=== PATIENT | male | born 1965 | race African-American/Black ===

== ENCOUNTER → 2016-07-14 | Outpatient (CLI) | payer OTHER ==
--- NOTE | 2016-07-15 05:54 | ECHO ---
DATE OF PROCEDURE: 07/14/2016 REFERRING PHYSICIAN: Dr. Jonah Rivera. INDICATION: Preprocedural cardiac examination. HEIGHT: 180 cm. WEIGHT: 97.5 kg. MEASUREMENTS: Left ventricle diastole: 4.9 cm Ventricular septum: 1.12 cm Posterior wall: 1.11 cm Left atrium: 3.8 cm Aortic root: 3.5 cm LVOT: 2.2 cm DOPPLER MEASUREMENTS: Aortic valve velocity: 134 cm/s LVOT velocity: 72.9 cm/s LVOT VTI: 15.2 cm Very mild mitral regurgitation. Mitral E velocity: 54.8 cm/s Mitral A velocity: 78.5 cm/s Very mild tricuspid regurgitation. Very mild pulmonic regurgitation. Pulmonary artery systolic pressure 36 mmHg by pulmonary acceleration time method. MITRAL ANNULAR TISSUE DOPPLER: E-prime septal: 4.7 cm/s E-prime lateral: 8.9 cm/s DESCRIPTION: Rhythm was sinus. This was a moderately technically difficult echocardiogram. No pericardial effusion. This is a 2D, M-mode, color flow Doppler and pulsed wave Doppler examination and included mitral annular tissue Doppler. CONCLUSIONS: 1. Normal left ventricle internal dimensions and wall thickness. Normal LV wall motion and wall thickening. Normal LV systolic function. LVEF 60% by visual estimate. 2. Grade 1 LV diastolic dysfunction. 3. Suggestive of mild elevation of pulmonary artery increased systolic pressure. Central venous pressure estimated to be 0-5 mmHg.
== END | disposition home or self-care (01) ==
LOC: M CARPUL 12:55
PROVIDERS: ATTEND Internal Medicine Infectious Disease
DX: Z01.810 Encounter for preprocedural cardiovascular examination (principal); I51.9 Heart disease, unspecified; I87.8 Other specified disorders of veins

== ENCOUNTER → 2016-10-05 | Outpatient (REF) | payer OTHER ==
[2016-10-05 13:29] LABS: ALBUMIN 3.8 GM/DL (3.2-5.2); ALBUMIN/GLOBULIN RATIO 1.03 (1.00-1.93); ALKALINE PHOSPHATASE 91 U/L (45-117); ALT/SGPT 70 U/L (12-78); ANION GAP 9 MEQ/L (8-16); AST/SGOT 32 U/L (15-37); BILIRUBIN,TOTAL 0.2 MG/DL (0.2-1.0); BLOOD UREA NITROGEN 24 MG/DL (7-18); CALCIUM LEVEL 9.1 MG/DL (8.5-10.1); CARBON DIOXIDE LEVEL 24 MEQ/L (21-32); CHLORIDE LEVEL 108 MEQ/L (98-107); CHOLESTEROL LEVEL 186 MG/DL (<200); CREATININE FOR GFR 1.15 MG/DL (0.70-1.30); GLOMERULAR FILTRATION RATE > 60.0 (>56); GLUCOSE, FASTING 96 MG/DL (70-105); POTASSIUM SERUM 4.4 MEQ/L (3.5-5.1); SODIUM LEVEL 141 MEQ/L (136-145); TOTAL PROTEIN 7.5 GM/DL (6.4-8.2); TRIGLYCERIDES LEVEL 114 MG/DL (<150)
[2016-10-08 00:08] LABS: %CD3+CD4+CD8+ 1.6 % (Not Estab.); %CD3+CD4+CD8- 32.5 % (Not Estab.); %CD3+CD4-CD8+ 28.1 % (Not Estab.); %CD3+CD4-CD8- 0.5 % (Not Estab.); ABS CD3+CD4+CD8+ 37 /uL (Not Estab.); ABS CD3+CD4+CD8- 748 /uL (Not Estab.); ABS CD3+CD4-CD8+ 646 /uL (Not Estab.); ABS CD3+CD4-CD8- 12 /uL (Not Estab.); CD4/CD8 NYSDOH RATIO 1.16 (Not Estab.); Eosinophils 3 % (.); HCT 41.9 % (37.5-51.0); HGB 13.9 g/dL (12.6-17.7); Monocytes 10 % (.); Neutrophils 47 % (.); WBC 5.9 x10E3/uL (3.4-10.8)
== END ==
LOC: M SFHCPLAZ 08:52
PROVIDERS: ATTEND Internal Medicine Infectious Disease
DX: B20 Human immunodeficiency virus [HIV] disease (principal); Z11.3 Encounter for screening for infections with a predominantly sexual mode of transmission; Z13.220 Encounter for screening for lipoid disorders; Z12.5 Encounter for screening for malignant neoplasm of prostate

== ENCOUNTER → 2016-10-14 | Outpatient (CLI) | payer OTHER ==
--- NOTE | 2016-10-20 12:31 | SLEEPHOME ---
DATE OF PROCEDURE: 10/14/2016 INTERPRETATION: Diagnostic home sleep testing was performed due to concern for the obstructive sleep apnea syndrome. For testing, a NOX-T3 respiratory monitoring device was used. Continuous record was made of pulse, oxygen saturation, air flow, chest and abdominal strain, and body position. 9 hours and 59 minutes of data were reviewed. Of these, 7 hours and 42 minutes were marked as time in bed. During the interval marked time in bed, there were 141 respiratory events identified of 10 seconds in duration or greater for a respiratory event index of 18.3. The events were primarily obstructive. Baseline pulse rate was 88 beats per minute. Pulse rate ranged 56 to 110. Baseline saturation was 93%. Lowest oxygen saturation 81%. Testing was performed in both the supine and nonsupine positions. IMPRESSION: Abnormal home sleep testing with repetitive respiratory events and oxygen desaturations to 81% with a respiratory event index of 18.3 is consistent with the obstructive sleep apnea syndrome. RECOMMENDATION: The patient should be referred for formal sleep evaluation and in laboratory pressure titration in light of the significant oxygen desaturations.
== END ==
LOC: M SLEEP HO 13:13
PROVIDERS: ATTEND Internal Medicine Infectious Disease
DX: R06.83 Snoring (principal); G47.9 Sleep disorder, unspecified

== ENCOUNTER → 2017-03-18 | Outpatient (REF) | payer OTHER ==
[2017-03-18 14:37] LABS: ALBUMIN/GLOBULIN RATIO 1.05 (1.00-1.93); ALKALINE PHOSPHATASE 103 U/L (45-117); ALT/SGPT 37 U/L (12-78); ANION GAP 11 MEQ/L (8-16); AST/SGOT 20 U/L (15-37); BILIRUBIN,TOTAL 0.6 MG/DL (0.2-1.0); BLOOD UREA NITROGEN 13 MG/DL (7-18); CALCIUM LEVEL 9.5 MG/DL (8.5-10.1); CARBON DIOXIDE LEVEL 25 MEQ/L (21-32); CHLORIDE LEVEL 108 MEQ/L (98-107); CREATININE FOR GFR 1.05 MG/DL (0.70-1.30); GLOMERULAR FILTRATION RATE > 60.0 (>56); GLUCOSE, FASTING 90 MG/DL (70-105); POTASSIUM SERUM 4.4 MEQ/L (3.5-5.1); SODIUM LEVEL 144 MEQ/L (136-145); TOTAL PROTEIN 7.8 GM/DL (6.4-8.2)
[2017-03-20 00:07] LABS: %CD3+CD4+CD8+ 1.4 % (Not Estab.); %CD3+CD4+CD8- 34.8 % (Not Estab.); %CD3+CD4-CD8+ 27.4 % (Not Estab.); %CD3+CD4-CD8- 0.7 % (Not Estab.); ABS CD3+CD4+CD8+ 27 /uL (Not Estab.); ABS CD3+CD4+CD8- 661 /uL (Not Estab.); ABS CD3+CD4-CD8+ 521 /uL (Not Estab.); ABS CD3+CD4-CD8- 13 /uL (Not Estab.); CD4/CD8 NYSDOH RATIO 1.27 (Not Estab.); Eosinophils 2 % (.); HCT 44.5 % (37.5-51.0); HGB 15.3 g/dL (12.6-17.7); Monocytes 9 % (.); Neutrophils 53 % (.); WBC 5.4 x10E3/uL (3.4-10.8)
== END ==
LOC: M SFHCPLAZ 12:00
PROVIDERS: ATTEND Internal Medicine Infectious Disease
DX: B20 Human immunodeficiency virus [HIV] disease (principal)

== ENCOUNTER → 2017-08-02 | Outpatient (CLI) | payer MEDICARE, MEDICAID | LOC: M RAD 16:39 | DX: M25.572 Pain in left ankle and joints of left foot (principal) | CPT/HCPCS: 73700 ==

== ENCOUNTER → 2017-11-08 | Outpatient (REF) | payer MEDICARE, MEDICAID ==
[2017-11-08 12:46] LABS: ALBUMIN 3.7 GM/DL (3.2-5.2); ALBUMIN/GLOBULIN RATIO 0.95 (1.00-1.93); ALKALINE PHOSPHATASE 112 U/L (45-117); ALT/SGPT 27 U/L (12-78); ANION GAP 6 MEQ/L (8-16); AST/SGOT 24 U/L (7-37); BILIRUBIN,TOTAL 0.3 MG/DL (0.2-1.0); BLOOD UREA NITROGEN 18 MG/DL (7-18); CALCIUM LEVEL 8.9 MG/DL (8.5-10.1); CARBON DIOXIDE LEVEL 27 MEQ/L (21-32); CHLORIDE LEVEL 110 MEQ/L (98-107); CHOLESTEROL LEVEL 175 MG/DL (<200); CHOLESTEROL RISK RATIO 3.804 (<5); CREATININE FOR GFR 0.97 MG/DL (0.70-1.30); GLOMERULAR FILTRATION RATE > 60.0 (>56); GLUCOSE, FASTING 92 MG/DL (70-100); HDL CHOLESTEROL 46 MG/DL (>40); LDL CHOLESTEROL 110.6 MG/DL (<100); NON-HDL-C 129 MG/DL; POTASSIUM SERUM 4.5 MEQ/L (3.5-5.1); PSA SCREENING 2.12 NG/ML (< 4.0); SODIUM LEVEL 143 MEQ/L (136-145); TOTAL PROTEIN 7.6 GM/DL (6.4-8.2); TRIGLYCERIDES LEVEL 92 MG/DL (<150)
[2017-11-08 12:53] LABS: APPEARANCE, URINE HAZY (CLEAR); BACTERIA, URINE AUTO 1+ (NEGATIVE); BILIRUBIN, URINE AUTO NEGATIVE (NEGATIVE); BLOOD, URINE BLOOD NEGATIVE (NEGATIVE); COLOR, URINE YELLOW (YELLOW); GLUCOSE, URINE (UA) AUTO NEGATIVE (NEGATIVE); KETONE, URINE AUTO NEGATIVE (NEGATIVE); LEUKOCYTE ESTERASE, URINE AUTO NEGATIVE (NEGATIVE); MUCUS, URINE SMALL (NEGATIVE); NITRITE, URINE AUTO NEGATIVE (NEGATIVE); PROTEIN, URINE AUTO NEGATIVE (NEGATIVE); RBC, URINE AUTO 3 /HPF (0-3); SPECIFIC GRAVITY URINE AUTO 1.025 (1.002-1.035); SQUAMOUS EPITHELIAL CELL UR AU 0 /HPF (0-6); WBC, URINE AUTO 1 /HPF (0-3)
[2017-11-08 14:06] LABS: CHLAMYDIA DNA AMPLIFICATION NEGATIVE (NEGATIVE); GC DNA AMPLIFICATION NEGATIVE (NEGATIVE)
[2017-11-09 14:19] LABS: % CD8 Pos Lymph 29.8 % (12.0-35.5); %CD4 Pos Lymphs 37.6 % (30.8-58.5); ABS Eosinophils 0.1 x10E3/uL (0.0-0.4); ABS Monocytes 0.6 x10E3/uL (0.1-0.9); ABS Neutophils 4.5 x10E3/uL (1.4-7.0); Abs CD4 Helper 752 /uL (359-1519); Abs CD8 Suppres 596 /uL (109-897); CD4/CD8 Ratio 1.26 (0.92-3.72); Eosinophils 2 % (Not Estab.); HCT 42.6 % (37.5-51.0); HGB 13.6 g/dL (13.0-17.7); Immature Grans 0 % (Not Estab.); Lymphocytes 27 % (Not Estab.); MCH 30.6 pg (26.6-33.0); MCHC 31.9 g/dL (31.5-35.7); MCV 96 fL (79-97); Monocytes 8 % (Not Estab.); Neutrophils 63 % (Not Estab.); Platelets 355 x10E3/uL (150-379); RBC 4.44 x10E6/uL (4.14-5.80); RDW 15.4 % (12.3-15.4); WBC 7.2 x10E3/uL (3.4-10.8)
[2017-11-10 14:16] LABS: HIV-1 RNA PCR QUANT 2 LC550285 <20 copies/mL (.)
== END ==
LOC: M SFHCPLAZ 08:54
DX: B20 Human immunodeficiency virus [HIV] disease (principal); Z13.220 Encounter for screening for lipoid disorders; Z12.5 Encounter for screening for malignant neoplasm of prostate; R76.11 Nonspecific reaction to tuberculin skin test without active tuberculosis; M21.542 Acquired clubfoot, left foot; J30.9 Allergic rhinitis, unspecified; Z72.0 Tobacco use; Z23 Encounter for immunization; G47.33 Obstructive sleep apnea (adult) (pediatric); Z79.899 Other long term (current) drug therapy
CPT/HCPCS: 80053

== ENCOUNTER → 2018-06-14 | Outpatient (REF) | payer MEDICARE, MEDICAID ==
[2018-06-14 12:29] LABS: ALBUMIN 3.8 GM/DL (3.2-5.2); ALT/SGPT 25 U/L (12-78); BILIRUBIN,TOTAL 0.3 MG/DL (0.2-1.0); BLOOD UREA NITROGEN 16 MG/DL (7-18); CALCIUM LEVEL 8.7 MG/DL (8.5-10.1); CARBON DIOXIDE LEVEL 25 MEQ/L (21-32); CHLORIDE LEVEL 112 MEQ/L (98-107); CREATININE FOR GFR 0.91 MG/DL (0.70-1.30); GLOMERULAR FILTRATION RATE > 60.0 (>56); GLUCOSE, FASTING 94 MG/DL (70-100); POTASSIUM SERUM 4.2 MEQ/L (3.5-5.1); SODIUM LEVEL 143 MEQ/L (136-145); TOTAL PROTEIN 7.3 GM/DL (6.4-8.2)
[2018-06-16 14:24] LABS: % CD8 Pos Lymph 30.1 % (12.0-35.5); %CD4 Pos Lymphs 39.2 % (30.8-58.5); ABS Eosinophils 0.1 x10E3/uL (0.0-0.4); ABS Lymphs 1.9 x10E3/uL (0.7-3.1); ABS Monocytes 0.5 x10E3/uL (0.1-0.9); ABS Neutophils 3.7 x10E3/uL (1.4-7.0); Abs CD4 Helper 745 /uL (359-1519); Abs CD8 Suppres 572 /uL (109-897); Eosinophils 2 % (Not Estab.); HCT 41.9 % (37.5-51.0); HGB 13.8 g/dL (13.0-17.7); HIV-1 RNA PCR QUANT 2 LC550285 <20 copies/mL (.); Immature Grans 0 % (Not Estab.); Lymphocytes 30 % (Not Estab.); MCH 31.7 pg (26.6-33.0); MCHC 32.9 g/dL (31.5-35.7); MCV 96 fL (79-97); Monocytes 8 % (Not Estab.); Neutrophils 59 % (Not Estab.); Platelets 356 x10E3/uL (150-379); RBC 4.35 x10E6/uL (4.14-5.80); RDW 15.7 % (12.3-15.4); WBC 6.3 x10E3/uL (3.4-10.8)
== END ==
LOC: M SFHCPLAZ 09:46
PROVIDERS: ATTEND Internal Medicine Infectious Disease
DX: B20 Human immunodeficiency virus [HIV] disease (principal)
CPT/HCPCS: 36415; 80053; 86360; 87536; 90682; G0008; G0463

== ENCOUNTER → 2018-08-29 | Outpatient (REF) | payer MEDICARE, MEDICAID, OTHER | LOC: M SFHCPLAZ 12:35 | PROVIDERS: ATTEND Internal Medicine Infectious Disease | DX: L02.01 Cutaneous abscess of face (principal) | CPT/HCPCS: 87070; 87077; 87186; 87205; G0463 ==

== ENCOUNTER → 2018-09-23 | Outpatient (CLI) | payer MEDICARE, OTHER ==
--- NOTE | 2018-09-23 15:05 | REP ---
Left tib-fib series: Four views. History: Status post ankle fusion. No comparison imaging. Findings: An intramedullary tin is seen in the distal tibia which is seen coursing through the ankle joint and terminating and anchored in the mid calcaneus. There are anchoring pins across the talus as well. There are two metallic ruy across the first tarsometatarsal articulation. There is a nonunited radiolucent cleft in the distal fibular diametaphyseal region. Impression: Status post ankle and hind foot arthrodesis findings as above. Electronically Signed by Lit Cordova MD 09/23/2018 04:19 P
== END ==
LOC: M RAD 10:16
PROVIDERS: ATTEND Podiatrist Foot & Ankle Surgery
DX: Z98.1 Arthrodesis status (principal)

== ENCOUNTER → 2018-12-15 | Outpatient (REF) | payer OTHER, MEDICAID ==
[2018-12-15 16:21] LABS: APPEARANCE, URINE CLEAR (CLEAR); BACTERIA, URINE AUTO NEGATIVE (NEGATIVE); BILIRUBIN, URINE AUTO NEGATIVE (NEGATIVE); BLOOD, URINE BLOOD NEGATIVE (NEGATIVE); COLOR, URINE YELLOW (YELLOW); GLUCOSE, URINE (UA) AUTO NEGATIVE (NEGATIVE); KETONE, URINE AUTO TRACE mg/dL (NEGATIVE); LEUKOCYTE ESTERASE, URINE AUTO NEGATIVE (NEGATIVE); MUCUS, URINE SMALL (NEGATIVE); NITRITE, URINE AUTO NEGATIVE (NEGATIVE); PROTEIN, URINE AUTO NEGATIVE (NEGATIVE); RBC, URINE AUTO 0 /HPF (0-3); SPECIFIC GRAVITY URINE AUTO 1.026 (1.002-1.035); SQUAMOUS EPITHELIAL CELL UR AU 0 /HPF (0-6); WBC, URINE AUTO 0 /HPF (0-3)
[2018-12-15 16:28] LABS: ALBUMIN 4.2 GM/DL (3.2-5.2); ALT/SGPT 29 U/L (12-78); BILIRUBIN,TOTAL 0.5 MG/DL (0.2-1.0); BLOOD UREA NITROGEN 15 MG/DL (7-18); CALCIUM LEVEL 9.4 MG/DL (8.5-10.1); CARBON DIOXIDE LEVEL 24 MEQ/L (21-32); CHLORIDE LEVEL 106 MEQ/L (98-107); CHOLESTEROL LEVEL 202 MG/DL (<200); CREATININE FOR GFR 1.11 MG/DL (0.70-1.30); GLOMERULAR FILTRATION RATE > 60.0 (>56); GLUCOSE, FASTING 99 MG/DL (70-100); HDL CHOLESTEROL 44 MG/DL (>40); LDL CHOLESTEROL 139 MG/DL (<100); NON-HDL-C 158 MG/DL; POTASSIUM SERUM 4.5 MEQ/L (3.5-5.1); SODIUM LEVEL 140 MEQ/L (136-145); TOTAL PROTEIN 8.6 GM/DL (6.4-8.2); TRIGLYCERIDES LEVEL 94 MG/DL (<150)
[2018-12-15 18:52] LABS: CHLAMYDIA DNA AMPLIFICATION NEGATIVE (NEGATIVE); GC DNA AMPLIFICATION NEGATIVE (NEGATIVE)
[2018-12-20 00:06] LABS: % CD8 Pos Lymph 29.7 % (12.0-35.5); %CD4 Pos Lymphs 40.6 % (30.8-58.5); ABS Eosinophils 0.1 x10E3/uL (0.0-0.4); ABS Lymphs 2.5 x10E3/uL (0.7-3.1); ABS Monocytes 0.6 x10E3/uL (0.1-0.9); ABS Neutophils 4.1 x10E3/uL (1.4-7.0); Abs CD4 Helper 1015 /uL (359-1519); Abs CD8 Suppres 743 /uL (109-897); CD4/CD8 Ratio 1.37 (0.92-3.72); Eosinophils 2 % (Not Estab.); HCT 48.7 % (37.5-51.0); HGB 15.9 g/dL (13.0-17.7); HIV-1 RNA PCR QUANT 2 LC550285 <20 copies/mL (.); Immature Grans 0 % (Not Estab.); Lymphocytes 34 % (Not Estab.); MCH 32.6 pg (26.6-33.0); MCHC 32.6 g/dL (31.5-35.7); MCV 100 fL (79-97); Monocytes 8 % (Not Estab.); Neutrophils 56 % (Not Estab.); Platelets 415 x10E3/uL (150-450); RBC 4.87 x10E6/uL (4.14-5.80); RDW 15.2 % (12.3-15.4); WBC 7.3 x10E3/uL (3.4-10.8)
== END ==
LOC: M SFHCPLAZ 12:48
PROVIDERS: ATTEND Internal Medicine Infectious Disease
DX: B20 Human immunodeficiency virus [HIV] disease (principal); Z11.3 Encounter for screening for infections with a predominantly sexual mode of transmission

== ENCOUNTER → 2018-12-26 | Outpatient (CLI) | payer MEDICARE, MEDICAID ==
[~2018-12-26] MED LIST: BENA25CA4 PO; CHAN1PAK11; GENV1TAB; ISOVUE-370 76% 100ML VIAL (Q9967) As Ordered ONE; NICO4GUM41; PRED20TA PO; PRIL20TA2 PO
--- NOTE | 2018-12-27 10:02 | REP ---
Soft tissue CT study of the neck with IV contrast: History: Mass in the left cheek. CT contrast dose: 75 mL of intravenous Isovue 370. CT findings: There is a 15 mm fluid density lesion in the subcutaneous fat of the left cheek superficial to the upper portion of the platysma. There is a thin enhancing wall. The lesion abuts the overlying dermis. It is consistent with a cyst, perhaps a sebaceous cyst. The parotid and submandibular glands are normal and symmetric. There is no other cervical cyst. No neck mass or adenopathy is appreciated. The carotid bifurcations are somewhat high and there is minimal vascular calcification. No other vascular abnormality is seen. Visualized paranasal sinuses are clear. There are multifocal punctate calcifications in the dermis of the cheeks in this patient. Impression: Small subdermal or subcutaneous 15 mm cyst in the left malar region. Question sebaceous cyst. No mass or adenopathy seen. Electronically Signed by Lit Cordova MD 12/27/2018 03:47 P
== END ==
LOC: M RAD 18:13
PROVIDERS: ATTEND Internal Medicine Infectious Disease
DX: R22.0 Localized swelling, mass and lump, head (principal)
CPT/HCPCS: 70491; Q9967

== ENCOUNTER → 2019-04-18 | Outpatient (REF) | payer OTHER, MEDICAID ==
[2019-04-18 16:27] LABS: ALBUMIN 4.1 GM/DL (3.2-5.2); ALT/SGPT 27 U/L (12-78); BILIRUBIN,TOTAL 0.7 MG/DL (0.2-1.0); BLOOD UREA NITROGEN 10 MG/DL (7-18); CALCIUM LEVEL 8.6 MG/DL (8.5-10.1); CARBON DIOXIDE LEVEL 30 MEQ/L (21-32); CHLORIDE LEVEL 106 MEQ/L (98-107); CREATININE FOR GFR 1.03 MG/DL (0.70-1.30); GLOMERULAR FILTRATION RATE > 60.0 (>56); GLUCOSE, FASTING 68 MG/DL (70-100); SODIUM LEVEL 140 MEQ/L (136-145); TOTAL PROTEIN 7.7 GM/DL (6.4-8.2)
[2019-04-22 00:07] LABS: % CD8 Pos Lymph 27.7 % (12.0-35.5); %CD4 Pos Lymphs 38.6 % (30.8-58.5); ABS Eosinophils 0.2 x10E3/uL (0.0-0.4); ABS Lymphs 2.7 x10E3/uL (0.7-3.1); ABS Monocytes 0.4 x10E3/uL (0.1-0.9); ABS Neutophils 2.6 x10E3/uL (1.4-7.0); Abs CD4 Helper 1042 /uL (359-1519); Abs CD8 Suppres 748 /uL (109-897); CD4/CD8 Ratio 1.39 (0.92-3.72); Eosinophils 3 % (Not Estab.); HGB 14.9 g/dL (13.0-17.7); HIV-1 RNA PCR QUANT 2 LC550285 200 copies/mL (.); HIV-1 RNA PCR QUANT 3 LC550285 2.301 (.); Immature Grans 0 % (Not Estab.); Lymphocytes 45 % (Not Estab.); MCH 31.9 pg (26.6-33.0); MCHC 32.4 g/dL (31.5-35.7); MCV 99 fL (79-97); Monocytes 6 % (Not Estab.); Neutrophils 45 % (Not Estab.); Platelets 380 x10E3/uL (150-450); RBC 4.67 x10E6/uL (4.14-5.80); RDW 14.9 % (12.3-15.4); WBC 5.9 x10E3/uL (3.4-10.8)
== END ==
LOC: M SFHCPLAZ 13:34
PROVIDERS: ATTEND Internal Medicine Infectious Disease
DX: B20 Human immunodeficiency virus [HIV] disease (principal)

== ENCOUNTER → 2019-05-24 | Outpatient (REF) | payer OTHER, MEDICAID ==
[2019-05-27 00:16] LABS: HIV-1 RNA PCR QUANT 2 LC550285 <20 copies/mL (.)
== END ==
LOC: M SFHCPLAZ 09:37
PROVIDERS: ATTEND Internal Medicine Infectious Disease
DX: B20 Human immunodeficiency virus [HIV] disease (principal)

== ENCOUNTER 2019-06-05 18:55 | Emergency (ER) | payer MEDICARE, MEDICAID ==
[~2019-06-05] VITALS: Ht 170.2 cm; Wt 101.4 kg
[2019-06-05] MEDS ORDERED: NICO4GUM41 (19:01)
[2019-06-05] MEDS ORDERED: GENV1TAB (19:01)
[2019-06-05] MEDS ORDERED: CHAN1PAK11 (19:01)
[2019-06-05 19:27] LABS: HEMATOCRIT 47.3 % (42.0-52.0); HEMOGLOBIN 15.4 g/dl (13.5-17.5); MEAN CORPUSCULAR HEMOGLOBIN 31.6 pg (27.0-33.0); MEAN CORPUSCULAR HGB CONC 32.6 g/dl (32.0-36.5); MEAN CORPUSCULAR VOLUME 97.1 fl (80.0-96.0); PLATELET COUNT, AUTOMATED 416 10^3/uL (150-450); RED BLOOD COUNT 4.87 10^6/uL (4.30-6.10); WHITE BLOOD COUNT 6.1 10^3/uL (4.0-10.0)
[2019-06-05 19:57] LABS: ALBUMIN 3.7 GM/DL (3.2-5.2); ALT/SGPT 25 U/L (12-78); BILIRUBIN,TOTAL 0.6 MG/DL (0.2-1.0); BLOOD UREA NITROGEN 10 MG/DL (7-18); CARBON DIOXIDE LEVEL 25 MEQ/L (21-32); CHLORIDE LEVEL 106 MEQ/L (98-107); CREATININE FOR GFR 1.19 MG/DL (0.70-1.30); GLOMERULAR FILTRATION RATE > 60.0 (>56); GLUCOSE, FASTING 89 MG/DL (70-100); SODIUM LEVEL 140 MEQ/L (136-145); TOTAL PROTEIN 7.4 GM/DL (6.4-8.2)
[2019-06-05] MEDS ORDERED: predniSONE 20 MG TAB PO ONE (20:15)
[2019-06-05] MEDS ORDERED: diphenhydrAMINE 50 MG CAP PO ONE (20:15)
[2019-06-05] MEDS ORDERED: OMEPRAZOLE 20 MG CAP PO ONE (20:15)
[2019-06-05] MEDS ORDERED: PRED20TA PO (20:16)
[2019-06-05] MEDS ORDERED: BENA25CA4 PO (20:16)
[2019-06-05] MEDS ORDERED: PRIL20TA2 PO (20:16)
[2019-06-05 21:02] VITALS: BP 127/84
== END 2019-06-05 21:03 | disposition home or self-care (01) ==
LOC: M ED 18:55
DX: L50.0 Allergic urticaria (principal); B20 Human immunodeficiency virus [HIV] disease; F17.200 Nicotine dependence, unspecified, uncomplicated; Z88.6 Allergy status to analgesic agent; Z79.899 Other long term (current) drug therapy

== ENCOUNTER → 2020-04-09 | Outpatient (REF) | payer MEDICARE, MEDICAID ==
[~2020-04-09] MED LIST changes: -ISOVUE-370 76% 100ML VIAL (Q9967) As Ordered ONE
[2020-04-09 15:23] LABS: ALBUMIN 3.6 GM/DL (3.2-5.2); ALT/SGPT 24 U/L (12-78); BILIRUBIN,TOTAL 0.2 MG/DL (0.2-1.0); BLOOD UREA NITROGEN 12 MG/DL (7-18); CARBON DIOXIDE LEVEL 30 MEQ/L (21-32); CHLORIDE LEVEL 109 MEQ/L (98-107); CREATININE FOR GFR 1.03 MG/DL (0.70-1.30); GLOMERULAR FILTRATION RATE > 60.0 (>56); GLUCOSE, FASTING 105 MG/DL (70-100); POTASSIUM SERUM 4.1 MEQ/L (3.5-5.1); SODIUM LEVEL 142 MEQ/L (136-145); TOTAL 25(OH) VITAMIN D 29.1 NG/ML (30.0-100.0); TOTAL PROTEIN 6.9 GM/DL (6.4-8.2)
[2020-04-09 15:25] LABS: APPEARANCE, URINE CLEAR (CLEAR); BACTERIA, URINE AUTO NEGATIVE (NEGATIVE); BILIRUBIN, URINE AUTO NEGATIVE (NEGATIVE); BLOOD, URINE BLOOD NEGATIVE (NEGATIVE); CALCIUM OXALATE CRYSTALS SMALL; COLOR, URINE YELLOW (YELLOW); GLUCOSE, URINE (UA) AUTO NEGATIVE (NEGATIVE); KETONE, URINE AUTO NEGATIVE (NEGATIVE); LEUKOCYTE ESTERASE, URINE AUTO NEGATIVE (NEGATIVE); MUCUS, URINE SMALL (NEGATIVE); NITRITE, URINE AUTO NEGATIVE (NEGATIVE); PROTEIN, URINE AUTO NEGATIVE (NEGATIVE); RBC, URINE AUTO 0 /HPF (0-3); SPECIFIC GRAVITY URINE AUTO 1.026 (1.002-1.035); SQUAMOUS EPITHELIAL CELL UR AU 0 /HPF (0-6); WBC, URINE AUTO 0 /HPF (0-3)
[2020-04-11 15:10] LABS: % CD8 Pos Lymph 27.4 % (12.0-35.5); %CD4 Pos Lymphs 40.1 % (30.8-58.5); ABS Basophils 0.1 x10E3/uL (0.0-0.2); ABS Eosinophils 0.2 x10E3/uL (0.0-0.4); ABS Lymphs 2.7 x10E3/uL (0.7-3.1); ABS Monocytes 0.6 x10E3/uL (0.1-0.9); ABS Neutophils 4.9 x10E3/uL (1.4-7.0); Abs CD4 Helper 1083 /uL (359-1519); Abs CD8 Suppres 740 /uL (109-897); CD4/CD8 Ratio 1.46 (0.92-3.72); Eosinophils 2 % (Not Estab.); HCT 40.1 % (37.5-51.0); HGB 13.6 g/dL (13.0-17.7); Immature Grans 0 % (Not Estab.); Lymphocytes 32 % (Not Estab.); MCH 32.2 pg (26.6-33.0); MCHC 33.9 g/dL (31.5-35.7); MCV 95 fL (79-97); Monocytes 7 % (Not Estab.); Neutrophils 58 % (Not Estab.); Platelets 328 x10E3/uL (150-450); RBC 4.22 x10E6/uL (4.14-5.80); RDW 13.7 % (11.6-15.4); WBC 8.4 x10E3/uL (3.4-10.8)
[2020-04-12 02:12] LABS: HIV-1 RNA PCR QUANT 2 LC550285 20 copies/mL (.); HIV-1 RNA PCR QUANT 3 LC550285 1.301 (.)
== END ==
LOC: M SFHCPLAZ 10:10
PROVIDERS: ATTEND Internal Medicine Infectious Disease
DX: B20 Human immunodeficiency virus [HIV] disease (principal); E55.9 Vitamin D deficiency, unspecified; Z79.899 Other long term (current) drug therapy; Z23 Encounter for immunization
CPT/HCPCS: 36415; 80053; 81001; 82306; 86360; 86780; 87490; 87536; 87590; 90471; 90682; G0463